=== PATIENT | female | born 1985 | race Caucasian/White ===

== ENCOUNTER → 2020-07-11 | Outpatient (CLI) | payer OTHER, SELFPAY ==
[2020-07-13 20:07] LABS: Chlamydia By Nucleic Acid AMP Negative (Negative)
[2020-07-14 01:58] LABS: Gonococcus By Nucleic Acid AMP Negative (Negative)
[2020-07-15 15:17] LABS: HPV Reflexed? NOT INDICATED
== END | disposition home or self-care (01) ==
PROVIDERS: Visit Provider Obstetrics & Gynecology
DX: Z12.4 Encounter for screening for malignant neoplasm of cervix (principal); Z11.3 Encounter for screening for infections with a predominantly sexual mode of transmission
CPT/HCPCS: 87491; 87591; 88175; G0145

== ENCOUNTER → 2020-12-13 14:19 | Outpatient (CLI) | payer OTHER, SELFPAY ==
[2020-12-13 15:06] LABS: Hematocrit 36.8 % (37-47); Hemoglobin 11.9 g/dL (12.0-15.0); Mean Corp Hgb Conc 32.3 g/dL (32-36); Mean Corpuscular Hgb 28.3 pg (27.0-32.0); Mean Corpuscular Volume 87.4 fL (81-99); Mean Platelet Vol. 9.4 fl (6.2-12.0); Platelet Count 272 K/mm3 (150-450); RBC Distribution Width CV 14.4 % (11.6-14.6); RBC Distribution Width SD 45.6 fl (35.1-43.9); Red Blood Count 4.21 M/mm3 (4.2-5.4); White Blood Count 10.7 K/mm3 (4.4-11.0)
[2020-12-13 15:14] LABS: Glucose Challenge Gest 1H 50g 176 mg/dL (70-140)
== END ==
PROVIDERS: Visit Provider Obstetrics & Gynecology
DX: Z34.82 Encounter for supervision of other normal pregnancy, second trimester (principal)
CPT/HCPCS: 36415; 82950; 85027; 86850

== ENCOUNTER → 2020-12-19 08:20 | Outpatient (CLI) | payer OTHER, SELFPAY ==
[2020-12-19 09:18] LABS: Glucose GTT-Gestation. Fasting 84 mg/dL (<105)
[2020-12-19 10:07] LABS: Glucose GTT-Gestational 1 Hr 167 mg/dL (<190)
[2020-12-19 11:07] LABS: Glucose GTT-Gestational 2 Hr 107 mg/dL (<165)
[2020-12-19 13:56] LABS: Glucose GTT-Gestational 3 Hr 45 L (<145)
== END ==
PROVIDERS: Visit Provider Obstetrics & Gynecology
DX: O24.912 Unspecified diabetes mellitus in pregnancy, second trimester (principal); Z3A.00 Weeks of gestation of pregnancy not specified
CPT/HCPCS: 36415; 82951; 82952

== ENCOUNTER → 2021-02-06 | Outpatient (CLI) | payer OTHER, SELFPAY | END | disposition home or self-care (01) | LOC: LABSPEC 02-07 09:33 | PROVIDERS: Visit Provider Obstetrics & Gynecology | DX: Z36.85 Encounter for antenatal screening for Streptococcus B (principal) | CPT/HCPCS: 87081 ==

== ENCOUNTER 2021-02-27 19:05 | Inpatient (IN) | payer OTHER, SELFPAY ==
[2021-02-27 19:11] VITALS: BMI 36.6
[2021-02-27 19:27] VITALS: BP 127/74; PULSE 83; TEMP 36.9
[2021-02-27 19:32] VITALS: TEMP 36.9
[2021-02-27] MEDS: Lactated Ringers 1,000 ML 50 ML IV (19:45)
[2021-02-27 20:08] LABS: Absolute Lymphocyte Count 1.59 X10^3/uL (0.83-4.51); Absolute Neutrophil Count 8.4 X10^3/uL (2.0-7.7); Basophil# 0.02 X10^3/uL; Basophil% 0.2 % (0-1); Eosinophil# 0.01 X10^3/uL; Eosinophils% 0.1 % (0-5); Hematocrit 38.6 % (37-47); Hemoglobin 12.7 g/dL (12.0-15.0); Lymphocyte # 1.59 X10^3/ul (0.83-4.51); Lymphocyte % 14.8 % (19-41); Mean Corp Hgb Conc 32.9 g/dL (32-36); Mean Corpuscular Hgb 28.1 pg (27.0-32.0); Mean Corpuscular Volume 85.4 fL (81-99); Mean Platelet Vol. 9.8 fl (6.2-12.0); Monocyte# 0.62 X10^3/uL; Monocyte% 5.8 % (0-10); NRBC Flagged by Analyzer 0 % (0-5); Neutrophil # 8.44 X10^3/uL (2.7-7.7); Neutrophil % 78.6 % (47-70); Platelet Count 285 K/mm3 (150-450); RBC Distribution Width CV 14.5 % (11.6-14.6); RBC Distribution Width SD 44.7 fl (35.1-43.9); Red Blood Count 4.52 M/mm3 (4.2-5.4); White Blood Count 10.7 K/mm3 (4.4-11.0)
--- NOTE | 2021-02-27 20:19 | PCM.HP.BLA ---
History and Physical Date of Admission: 02/27/21 Chief complaint: Induction of labor at term History of present illness: 36-year-old at 39 weeks and 6 days with CHARMAINE: 02/28/2021 by 6-week ultrasound arrives for induction of labor at term: Denies headache, visual changes, chest pain, shortness of breath, nausea vomiting, right upper quadrant pain. Patient states good movement. Obstetric history: G1: at 42 weeks male 12/23/2013 G2: Current Past medical history: None Medications: vitamins, aspirin Past surgical history: Right axilla, left groin, nose Allergies: No known drug allergies Social history: Denies smoking, alcohol, drug use Family history: Denies a history of DVT or PE Review of systems: Besides the above pertinent positives a full review of systems was performed found to be negative Physical exam: Vitals: Blood pressure: 127/74 pulse 83 temperature 98.5 General: Normal-appearing no acute distress HEENT: Normocephalic/atraumatic no cervical lymphadenopathy Cardiac/respiratory: Nonlabored breathing, no use of accessory muscles Abdomen: Soft, nontender, gravid Pelvic exam: Cervical exam 50/-3 Extremities: No peripheral edema normal peripheral pulses Psych: Normal affect normal demeanor nonpressured speech Labs: White blood cells 10.7 hemoglobin 12.7/hematocrit 38.6 platelets 285,000 Assessment plan: 36-year-old G2, P1 at 39 weeks and 6 days arrives for induction of labor at term -Admit labor and delivery -CEFM -GBS negative -Cytotec induction -Routine orders -Anesthesia to see
[2021-02-27] MEDS: miSOPROStol 25 MCG TABLET VAGINAL (20:39)
[2021-02-27 20:48] VITALS: BP 127/93; PULSE 75; O2SAT 98
[2021-02-27 20:49] VITALS: TEMP 37.1
[2021-02-27] MEDS: Mag Hydrox/Al Hydrox/Simeth 30 ML UDC PO (21:47)
[2021-02-28] VITALS (46 sets, daily range): BP systolic 97–172; BP diastolic 51–116; PULSE 67–120; RESP 18; TEMP 35.8–37.8; O2SAT 93–100
[2021-02-28] MEDS: miSOPROStol 25 MCG TABLET VAGINAL ×3 (00:30→08:41)
--- NOTE | 2021-02-28 08:10 | PN.OBGYN_ITS ---
Subjective Subjective: Patient seen and examined. Comfortable without epidural. Objective Data Objective Data Vital Signs: Vital Signs Temp Pulse BP Pulse Ox 97.9 F 111 H 127/66 H 96 02/28/21 07:21 02/28/21 07:21 02/28/21 07:21 02/28/21 07:21 Weight: 244 lb 14.937 oz Body Mass Index (BMI) 36.6 Intake & Output: Intake and Output for Last 24 Hours 02/26/21 02/27/21 02/28/21 23:59 23:59 23:59 Intake Total 0.83 / 0.83 Output Total 300 / 300 Balance 0.83 / 0.83 -300 / -300 Lab / Micro Data Result Diagrams: 02/27/21 19:45 Labs: Laboratory Results - last 24 hr 02/27/21 02/27/21 19:45 19:45 WBC 10.7 RBC 4.52 Hgb 12.7 Hct 38.6 MCV 85.4 MCH 28.1 MCHC 32.9 RDW Std Deviation 44.7 H RDW Coeff of Blanca 14.5 Plt Count 285 MPV 9.8 Immature Gran % (Auto) 0.500 Neut % (Auto) 78.6 H Lymph % (Auto) 14.8 L [place] % (Auto) 5.8 Eos % (Auto) 0.1 Baso % (Auto) 0.2 Absolute Neuts (auto) 8.4 H Absolute Lymphs (auto) 1.59 Nucleated RBC % 0 Blood Type A NEGATIVE Antibody Screen NEGATIVE Micro: Microbiology 02/27/21 20:04 Interface Orders SARS-CoV-2 Antigen (Rapid) - Final Physical Exam Const alert, oriented x3 and no apparent distress HEENT normocephalic Head and Scalp: atraumatic Resp no retractions and no use of accessory muscles Narrative: Cervical exam: 50/-3 Extremity normal to inspection Psych mental status grossly normal, affect normal, speech normal and activity/motor behavior normal Assessment & Plan Assessment/Plan (1) : Status: Acute Code(s): Z34.90 - Encounter for supervision of normal , unspecified, unspecified trimester Plan: Patient seen and examined with unchanged cervix. We will continue Cytotec. Plan for AROM 1 further dilated.
[2021-02-28] MEDS: 0.9% Saline Lock 10 ML Syringe IV ×2 (09:48→21:41)
[2021-02-28] MEDS: Lactated Ringers 500 ML 999 ML IV (10:54)
[2021-02-28] MEDS: fentaNYL-bupivacaine (epidural) 100 ML BAG EPIDURAL ×2 (11:47→15:59)
[2021-02-28] MEDS: Lactated Ringers 1,000 ML 200 ML IV (14:58)
[2021-02-28] MEDS: Oxytocin 30 units/NS 500 ml 30 UNITS/500 ML IV.SOLN 334 UNITS IV (19:04)
--- NOTE | 2021-02-28 19:09 | OP.PCM_ITS ---
Problems Associated Problem List Diagnoses (1) : Report of Operation Date of Procedure: 02/28/21 Pre-Operative Diagnosis: Intrauterine Post-Operative Diagnosis: Intrauterine Surgery/Procedure Performed:: Spontaneous Vaginal Delivery Description of Surgical Findings:: Viable female with Apgars of 8/9 from an occiput anterior presentation with clear amniotic fluid and normal three- vessel placenta. Type of Anesthesia: Epidural Specimen's removed: [facility] Estimated Blood Loss (mL): 250 cc Description of Procedure: Spontaneous vaginal delivery of a viable female infant with Apgars of 8/9 from an occiput anterior presentation with clear amniotic fluid and normal three-vessel placenta. No episiotomy. First-degree midline laceration repaired with 3-0 Rapide suture with epidural in place. Kiwi vacuum used x1 gentle pull from low outlet to expedite delivery of the head due to deep decelerations and increasing maternal fatigue after 2 hours of pushing. 1 pop-off. Sponges okay. Delivery physician: Levi Lipscomb MD. Complications None
--- NOTE | 2021-02-28 19:15 | EX.PCM.OBRPT ---
Problems Associated Problem List Diagnoses (1) : Report of Operation (OB) Information Final CHARMAINE: 02/28/21 Final CHARMAINE Source: US <20 weeks Gestational age: 40 Weeks and 0 Days Rachel doctor who attended delivery (if requested by OB): Nay Pastrana Operative Information Date of Procedure: 02/28/21 Pre-Operative Diagnosis: IUP Post-Operative Diagnosis: IUP Type of Anesthesia: Epidural Findings Description of Procedure: Spontaneous vaginal delivery of a viable female with Apgars of 8/9 from an occiput anterior presentation with lightly meconium stained amniotic fluid and normal three-vessel placenta. No episiotomy. First-degree midline laceration repaired with 3-0 Rapide suture under epidural. Kiwi vacuum used x1 gentle pull from low outlet to expedite delivery of the head due to deep decelerations with pushing and increasing maternal fatigue after 2-1/2 hours of pushing. 1 pop-off. Sponges okay. Delivery physician: Levi Lipscomb MD. Procedure Performed: Vacuum Assisted Vaginal Delivery Presentation: Positive for Vertex Amniotic Membrane Rupture Type: Spontaneous Amniotic Fluid Description: Lightly stained meconium Placental Delivery Description: Spontaneous Placenta [facility]position: [facility] Cord Vessel Description: 3 Vessels Cord Entanglement: None Cord Gases: ABG Infant Gender: Female (1 minute): 8 (5 minute): 9 Esitmated Blood Loss (mL): 250 cc Medications Given Medications Given After Delivery: IV Pitocin Post Vaginal Delivery Episiotomy Description: None Laceration: Midline and 1st degree Complications Complications: None
--- NOTE | 2021-02-28 22:49 | NURSING ---
epidural catheter removed. blue tip intact.
[2021-03-01] MEDS: Ibuprofen 600 MG Tablet PO ×2 (03:40→13:06)
[2021-03-01 03:46] VITALS: BP 133/70; PULSE 79; RESP 18; TEMP 36.1
[2021-03-01] MEDS: Acetaminophen 500 MG Tablet 1000 MG PO (06:44)
[2021-03-01 08:11] VITALS: BP 105/52; PULSE 81; RESP 16; TEMP 36.3
--- NOTE | 2021-03-01 09:09 | PCM.PN.OB ---
Subjective Subjective: Patient without complaints. Tolerating diet well. Minimal vaginal bleeding reported. Breast-feeding going well. Wants to go home later today if baby is able to go. Objective Data Objective Data Vital Signs: Vital Signs Temp Pulse Resp BP Pulse Ox 97.3 F L 81 16 105/52 L 100 03/01/21 08:11 03/01/21 08:11 03/01/21 08:11 03/01/21 08:11 02/28/21 18:34 Oxygen Delivery Method Room Air Weight: 244 lb 14.937 oz Body Mass Index (BMI) 36.6 Intake & Output: Intake and Output for Last 24 Hours 02/27/21 02/28/21 03/01/21 23:59 23:59 23:59 Intake Total 0.83 / 0.83 2835 / 2835 Output Total 1225 / 1225 400 / 400 Balance 0.83 / 0.83 1610 / 1610 -400 / -400 Lab / Micro Data Result Diagrams: 02/27/21 19:45 Labs: Laboratory Results - last 24 hr 02/28/21 23:20 Screen NEGATIVE Baby's Blood Type A POSITIVE Baby's BRAULIO NEGATIVE Micro: Microbiology 02/27/21 20:04 Interface Orders SARS-CoV-2 Antigen (Rapid) - Final Assessment & Plan (1) : COMMENT: Doing well day #1 status post routine spontaneous vaginal delivery. Home-going instructions given. Will discharge to home if baby is able to go.
--- NOTE | 2021-03-01 09:11 | PCM.DC ---
Discharge Instructions Diet Discharge Diet: No restrictions Activity Discharge Activity: May Shower and May Take a Tub Bath May resume sexual activity in: 4-6 weeks Additional Activity Instructions:: Nothing in the vagina for 4-6 weeks. You may return to work/school in 6 weeks. Dressing / Incision Call your doctor if you observe: Inability to urinate, Inability to have a bowel movement and Using more than one pad per hour Discharge Plan Admission Admit Date/Time: 02/27/21 19:05 Primary Reason for Your Visit: Vaginal Delivery Attending Provider: Levi Lipscomb Primary Care Provider: Swati Novoa Discharge Orders/Prescriptions Prescriptions: Continued DHA 200 mg Capsule 1 mg PO DAILY RF: 0 Discontinued aspirin 81 mg Tablet 81 mg PO DAILY RF: 0 Referrals / Follow Up: Swati Novoa PA-C [Primary Care Provider] - Disposition Disposition (needs filled in before D/C Order can be placed): Home, self care
[2021-03-01 13:00] VITALS: BP 95/43; PULSE 78; RESP 16; TEMP 36.2
[2021-03-01 16:30] VITALS: BP 115/59; PULSE 78; RESP 18; TEMP 36.6
[2021-03-01 20:04] VITALS: BP 117/59; PULSE 67; RESP 16; TEMP 35.8
[2021-03-02 02:53] VITALS: BP 127/78; PULSE 75; RESP 16
--- NOTE | 2021-03-02 06:57 | PCM.PN.OB ---
Subjective Subjective: No overnight complaints. Pain well controlled, ice pack on perineum. Baby cluster feeding. Objective Data Objective Data Vital Signs: Vital Signs Temp Pulse Resp BP Pulse Ox 96.5 F L 75 16 127/78 H 100 03/01/21 20:04 03/02/21 02:53 03/02/21 02:53 03/02/21 02:53 02/28/21 18:34 Oxygen Delivery Method Room Air Weight: 244 lb 14.937 oz Body Mass Index (BMI) 36.6 Intake & Output: Intake and Output for Last 24 Hours 02/28/21 03/01/21 03/02/21 23:59 23:59 23:59 Intake Total 2835 / 2835 Output Total 1225 / 1225 400 / 400 Balance 1610 / 1610 -400 / -400 Lab / Micro Data Result Diagrams: 02/27/21 19:45 Micro: Microbiology 02/27/21 20:04 Interface Orders SARS-CoV-2 Antigen (Rapid) - Final Physical Exam Const alert, oriented x3 and no apparent distress HEENT normocephalic Head and Scalp: atraumatic Resp normal respiratory effort, no retractions and no use of accessory muscles Extremity normal to inspection, full ROM and no clubbing, cyanosis or edema Skin no rashes or lesions noted Psych mental status grossly normal, affect normal and speech normal Assessment & Plan (1) : COMMENT: Doing well day #2. Pain well controlled. Seeing . Okay to discharge home today.
[2021-03-02 08:25] VITALS: BP 118/66; PULSE 82; RESP 16; TEMP 36.2
== END 2021-03-02 11:55 | disposition home or self-care (01) | DRG 807 ==
PROVIDERS: Admitting Provider Obstetrics & Gynecology; PCP Family Medicine; Visit Provider Obstetrics & Gynecology
DX: O76 Abnormality in fetal heart rate and rhythm complicating labor and delivery (principal); Z37.0 Single live birth; O77.0 Labor and delivery complicated by meconium in amniotic fluid; O70.0 First degree perineal laceration during delivery; Z3A.40 40 weeks gestation of pregnancy; Z79.82 Long term (current) use of aspirin
CPT/HCPCS: 59025; 59050; 85025; 85461; 86850; 86900; 86901; 87426; 90384; 99218; J7120; A4216; G0378; J2790

== ENCOUNTER → 2024-07-27 | Outpatient (CLI) | payer MEDICAID, SELFPAY ==
--- NOTE | 2024-07-27 09:15 | BI_ITS ---
MAMMOGRAPHY - BILATERAL SCREENING REASON FOR EXAM: Female, 39 years old. Routine annual screening examination. PERTINENT HISTORY: Non-contributory. Remote right excisional breast biopsy. TECHNIQUE: Digital bilateral breast isidro (3D mammographic acquisition) in the CC and MLO projections. 2-D mediolateral oblique (MLO) and craniocaudad (CC) views of both breasts were obtained. CAD: Full Field Digital Mammography with Computer Added Detection was performed. COMPARISON: None. Baseline examination. FINDINGS: Breast Composition: The breasts are heterogeneously dense, which may obscure small masses. There are no dominant masses or suspicious calcifications. Small benign-appearing bilateral axillary lymph nodes. No other significant abnormalities are identified. BI/SCRN MAMM (CAD)W/ISIDRO BILAT IMPRESSION: Negative screening mammogram. Yearly followup mammogram recommended. (A) ASSESSMENT CATEGORY: BIRADS Category 2: Benign. A letter regarding these results will be sent to the patient by the facility within 30 days. Approximately 10% of breast cancers are not detected by mammography. A normal mammogram should not delay biopsy of a clinically suspicious abnormality. [id number] Electronically Signed: Michael Galindo MD at 9:55 EDT ,
== END | disposition home or self-care (01) ==
PROVIDERS: PCP Family Medicine; Referring Provider Advanced Practice Midwife; Visit Provider Advanced Practice Midwife
DX: Z12.31 Encounter for screening mammogram for malignant neoplasm of breast (principal)
CPT/HCPCS: 77063; 77067

== ENCOUNTER → 2024-07-28 | Outpatient (CLI) | payer MEDICAID, SELFPAY ==
[2024-08-04 12:10] LABS: HPV APTIMA, High Risk Negative (Negative)
== END | disposition home or self-care (01) ==
PROVIDERS: PCP Family Medicine; Referring Provider Advanced Practice Midwife; Visit Provider Advanced Practice Midwife
DX: Z12.4 Encounter for screening for malignant neoplasm of cervix (principal)
CPT/HCPCS: 87624; 88175; G0145

== ENCOUNTER → 2024-08-04 | Outpatient (CLI) | payer MEDICAID, SELFPAY ==
--- NOTE | 2024-08-04 12:37 | US_ITS ---
STUDY: ULTRASOUND OF THE FEMALE PELVIS - COMPLETE REASON FOR EXAM: Female, 39 years old. IUD placement LMP: 2 years ago. TECHNIQUE: Transabdominal and Transvaginal TECHNICAL QUALITY: Adequate. COMPARISON: None. FINDINGS: The uterus is anteverted and is in a midline position. The uterus measures 8.9 cm x 5.1 cm x 4 cm. Normal uterine cervix. The endometrium measures 6 mm in thickness, and is . There is no demonstrated endometrial mass. There is no demonstrated myometrial mass. I.U.D. - The patient does have an I.U.D. . The IUD is in the fundus. The right ovary is visualized. The right ovary measures 1.8 cm x 1.6 cm x 1.7 cm. There is no right ovarian cyst or ovarian mass. There is no visualized right adnexal mass or complex lesion. There is normal arterial and normal venous vascularity. The left ovary is visualized. The left ovary measures 2.8 cm x 1.9 cm x 1.8 cm. There is no left ovarian cyst or ovarian mass. There is no visualized left adnexal mass or complex lesion. There is normal arterial and normal venous vascularity. There is no fluid in the cul-de-sac. The pre void volume of the bladder was 103 ml. US/Pelvic w/ Transvaginal IMPRESSION: The IUD is in the fundal portion of the uterus. Electronically Signed: Michael Galindo MD at 15:31 EDT ,
[2024-08-04 14:31] LABS: T4 Free Direct 0.77 ng/dL (0.76-1.46); Thyroid Stim Hormone (TSH) 0.892 uIU/mL (0.358-3.740)
== END | disposition home or self-care (01) ==
PROVIDERS: PCP Family Medicine; Referring Provider Advanced Practice Midwife; Visit Provider Advanced Practice Midwife
DX: Z01.419 Encounter for gynecological examination (general) (routine) without abnormal findings (principal); T83.32XA Displacement of intrauterine contraceptive device, initial encounter
CPT/HCPCS: 36415; 76830; 76856; 84439; 84443

== ENCOUNTER → 2024-11-08 | Outpatient (CLI) | payer MEDICAID, SELFPAY ==
[2024-11-08 13:15] LABS: Absolute Lymphocyte Count 1.47 X10^3/uL (0.83-4.51); Absolute Neutrophil Count 6.7 X10^3/uL (2.0-7.7); Basophil# 0.04 X10^3/uL; Basophil% 0.5 % (0-1); Eosinophil# 0.01 X10^3/uL; Eosinophils% 0.1 % (0-5); Hematocrit 42.9 % (37-47); Hemoglobin 14.2 g/dL (12.0-15.0); Lymphocyte # 1.47 X10^3/ul (0.83-4.51); Lymphocyte % 17.1 % (19-41); Mean Corp Hgb Conc 33.1 g/dL (32-36); Mean Corpuscular Hgb 28.9 pg (27.0-32.0); Mean Corpuscular Volume 87.2 fL (81-99); Mean Platelet Vol. 9.7 fl (6.2-12.0); Monocyte# 0.35 X10^3/uL; Monocyte% 4.1 % (0-10); NRBC Flagged by Analyzer 0 % (0-5); Neutrophil # 6.71 X10^3/uL (2.7-7.7); Neutrophil % 77.7 % (47-70); Platelet Count 292 K/mm3 (150-450); RBC Distribution Width CV 12.4 % (11.6-14.6); RBC Distribution Width SD 39.7 fl (35.1-43.9); Red Blood Count 4.92 M/mm3 (4.2-5.4); White Blood Count 8.6 K/mm3 (4.4-11.0)
[2024-11-08 13:36] LABS: Vitamin D,25 Hydroxy 28.5 ng/mL
[2024-11-08 13:47] LABS: AST(SGOT) 21 U/L (15-37); Alanine Aminotransfer ALT/SGPT 28 U/L (13-56); Albumin, Serum 3.5 g/dL (3.2-5.0); Alkaline Phosphatase 39 U/L (45-117); Anion Gap 5 (5-15); BUN 6 mg/dL (7-18); BUN/Creat Ratio 8.9 RATIO (10-20); Calcium,Total 9.1 mg/dL (8.5-10.1); Chloride 106 mmol/L (98-107); Cholesterol 198 mg/dL (200); Creatinine, Serum 0.68 mg/dL (0.55-1.02); EST Glomerular Filtration Rate 102 mL/min (>60); Est Glom Filt Rate - Afr Amer 123 mL/min (>60); Globulin 3.5 g/dL (2.2-4.2); Glucose 95 mg/dL (74-106); High Density Lipoprotein 56 mg/dL; Potassium 3.8 mmol/L (3.5-5.1); Sodium Level 136 mmol/L (136-145); Triglycerides 127 mg/dL; Very Low Density Lipoprotein 25 mg/dL (5-40)
[2024-11-08 13:49] LABS: Hemoglobin A1c 5.2 % (3.8-5.6)
== END | disposition home or self-care (01) ==
LOC: LAB 12:40
PROVIDERS: PCP Family Medicine; Referring Provider Obstetrics & Gynecology; Visit Provider Obstetrics & Gynecology
DX: Z13.1 Encounter for screening for diabetes mellitus (principal); Z13.21 Encounter for screening for nutritional disorder; Z13.29 Encounter for screening for other suspected endocrine disorder; E66.9 Obesity, unspecified; Z13.220 Encounter for screening for lipoid disorders; Z13.6 Encounter for screening for cardiovascular disorders
CPT/HCPCS: 36415; 80053; 80061; 82306; 83036; 84443; 85025

== ENCOUNTER → 2024-11-23 | Outpatient (CLI) | payer MEDICAID, SELFPAY ==
--- NOTE | 2024-11-23 10:54 | EKG12_ITS ---
Test Reason : MED CHECK Blood Pressure : */* mmHG Vent. Rate : 60 BPM Atrial Rate : 60 BPM P-R Int : 160 ms QRS Dur : 90 ms QT Int : 436 ms P-R-T Axes : 50 78 46 degrees QTcB Int : 436 ms Normal sinus rhythm with sinus arrhythmia Normal ECG Confirmed by STACY QUIROS, CARLOS ([id number]), editor trade journal TORY LOPEZ ([id number]) on 11/24/2024 6:31:53 AM Referred By: Crystal Garber Confirmed By: CARLOS KUMAR MD
== END | disposition home or self-care (01) ==
LOC: PSN 10:53
PROVIDERS: PCP Family Medicine; Referring Provider Obstetrics & Gynecology; Visit Provider Obstetrics & Gynecology
DX: R63.5 Abnormal weight gain (principal)
CPT/HCPCS: 93005

== ENCOUNTER → 2024-12-17 | Outpatient (CLI) | payer MEDICAID, SELFPAY | END | disposition home or self-care (01) | LOC: LABSPEC 16:28 | PROVIDERS: PCP Family Medicine; Referring Provider Obstetrics & Gynecology; Visit Provider Obstetrics & Gynecology | DX: R10.2 Pelvic and perineal pain (principal) | CPT/HCPCS: 87070; 87205 ==

== ENCOUNTER → 2025-09-05 | Outpatient (CLI) | payer MEDICAID, SELFPAY | END | disposition home or self-care (01) | PROVIDERS: PCP Family Medicine; Referring Provider Nurse Practitioner Family; Visit Provider Nurse Practitioner Family | DX: N76.0 Acute vaginitis (principal) | CPT/HCPCS: 87070; 87205 ==